=== PATIENT | male | born 2000 | race Two or more races ===

== ENCOUNTER 2023-12-06 19:10 | Emergency (ER) | payer MEDICAID | END 2023-12-06 19:54 | disposition left against medical advice (07) | LOC: ER 19:10 | DX: T50.901A Poisoning by unspecified drugs, medicaments and biological substances, accidental (unintentional), initial encounter (principal); Z53.21 Procedure and treatment not carried out due to patient leaving prior to being seen by health care provider; Y92.9 Unspecified place or not applicable ==